=== PATIENT | female | born 1965 | race Caucasian/White ===

== ENCOUNTER → 2016-11-14 | Outpatient (CLI) | payer OTHER ==
[~2016-11-14] MED LIST: ALBU18HF INH; ATOR10TA PO; DIME1CAP PO; DULO60CA7 PO; ESOM40CA PO; ESTR1.25 PO; FENT1PAT77 TD; FLUT1DIS IH; GABA300C10 PO; MACI10TA PO; OXYB5TAB7 PO; OXYC15TA PO; OXYC20TA42 PO; SILD20TA PO; TIAG4TAB PO; TIOT18CA INH; WARF7.5T PO
== END | disposition home or self-care (01) ==
LOC: CFH 09:59
PROVIDERS: ATTEND Nurse Practitioner
DX: J98.11 Atelectasis (principal); I31.3 Pericardial effusion (noninflammatory); I51.7 Cardiomegaly
CPT/HCPCS: 71250

== ENCOUNTER → 2016-12-13 | Outpatient (CLI) | payer OTHER | END | disposition home or self-care (01) | LOC: CFH 10:09 | PROVIDERS: ATTEND Internal Medicine | DX: S52.124A Nondisplaced fracture of head of right radius, initial encounter for closed fracture (principal); M25.421 Effusion, right elbow; M25.531 Pain in right wrist; X58.XXXA Exposure to other specified factors, initial encounter; Y93.89 Activity, other specified; Y92.89 Other specified places as the place of occurrence of the external cause; Y99.8 Other external cause status ==

== ENCOUNTER → 2017-01-31 | Outpatient (CLI) | payer OTHER | END | disposition home or self-care (01) | LOC: CFH 15:19 | PROVIDERS: ATTEND Internal Medicine | DX: E04.2 Nontoxic multinodular goiter (principal) | CPT/HCPCS: 76536 ==

== ENCOUNTER → 2017-02-10 | Outpatient (CLI) | payer OTHER | END | disposition home or self-care (01) | LOC: RAD 14:01 | PROVIDERS: ATTEND Internal Medicine Gastroenterology | DX: K59.00 Constipation, unspecified (principal); Z90.49 Acquired absence of other specified parts of digestive tract; K92.1 Melena; R10.13 Epigastric pain; K64.8 Other hemorrhoids; I27.2 Other secondary pulmonary hypertension; G89.4 Chronic pain syndrome; Z79.01 Long term (current) use of anticoagulants; R13.14 Dysphagia, pharyngoesophageal phase; T40.2X5A Adverse effect of other opioids, initial encounter | CPT/HCPCS: 74000 ==

== ENCOUNTER → 2017-06-07 | Outpatient (CLI) | payer OTHER ==
[~2017-06-07] MED LIST changes: -TIAG4TAB PO; +TIAG4TAB18 PO
== END | disposition home or self-care (01) ==
LOC: WOUND 14:00
PROVIDERS: ATTEND Podiatrist Foot & Ankle Surgery
DX: E11.621 Type 2 diabetes mellitus with foot ulcer (principal); L97.521 Non-pressure chronic ulcer of other part of left foot limited to breakdown of skin; E11.618 Type 2 diabetes mellitus with other diabetic arthropathy; I27.29 Other secondary pulmonary hypertension; E11.610 Type 2 diabetes mellitus with diabetic neuropathic arthropathy; M19.072 Primary osteoarthritis, left ankle and foot; I50.9 Heart failure, unspecified; F17.200 Nicotine dependence, unspecified, uncomplicated; Z79.01 Long term (current) use of anticoagulants; Z86.2 Personal history of diseases of the blood and blood-forming organs and certain disorders involving the immune mechanism; Z90.710 Acquired absence of both cervix and uterus; Z90.49 Acquired absence of other specified parts of digestive tract
CPT/HCPCS: 97597

== ENCOUNTER → 2017-06-12 | Outpatient (CLI) | payer OTHER | END | disposition home or self-care (01) | LOC: CFH 12:13 | PROVIDERS: ATTEND Podiatrist Foot & Ankle Surgery | DX: M19.072 Primary osteoarthritis, left ankle and foot (principal); M14.672 Charcot's joint, left ankle and foot ==

== ENCOUNTER → 2017-06-14 | Outpatient (CLI) | payer OTHER | END | disposition home or self-care (01) | LOC: WOUND 10:00 | PROVIDERS: ATTEND Podiatrist Foot & Ankle Surgery | DX: E11.621 Type 2 diabetes mellitus with foot ulcer (principal); L97.511 Non-pressure chronic ulcer of other part of right foot limited to breakdown of skin; G35 Multiple sclerosis; I11.0 Hypertensive heart disease with heart failure; I50.9 Heart failure, unspecified; I27.29 Other secondary pulmonary hypertension; M19.072 Primary osteoarthritis, left ankle and foot; E11.610 Type 2 diabetes mellitus with diabetic neuropathic arthropathy; E11.618 Type 2 diabetes mellitus with other diabetic arthropathy; F17.210 Nicotine dependence, cigarettes, uncomplicated; Z79.01 Long term (current) use of anticoagulants; Z90.49 Acquired absence of other specified parts of digestive tract; Z90.710 Acquired absence of both cervix and uterus | CPT/HCPCS: G0463; WOU0463 ==

== ENCOUNTER → 2017-09-11 | Outpatient (CLI) | payer OTHER, MEDICAID ==
[~2017-09-11] MED LIST changes: +GADOBUTROL 10 MMOL/10 ML PFS ONE; +RIVA10TA PO
== END ==
LOC: RAD 11:22
PROVIDERS: ATTEND Psychiatry & Neurology Neurology
DX: G35 Multiple sclerosis (principal); R90.82 White matter disease, unspecified
CPT/HCPCS: 70553; A9585

== ENCOUNTER → 2017-10-22 | Outpatient (CLI) | payer OTHER, MEDICAID ==
[~2017-10-22] MED LIST changes: -GADOBUTROL 10 MMOL/10 ML PFS ONE
== END | disposition home or self-care (01) ==
LOC: CFH 10:40
PROVIDERS: ATTEND Family Medicine
DX: Z12.31 Encounter for screening mammogram for malignant neoplasm of breast (principal)
CPT/HCPCS: 77063; 77067

== ENCOUNTER 2017-12-25 15:48 | Inpatient (IN) | payer OTHER, MEDICAID ==
[2017-12-25] VITALS (7 sets, daily range): BP systolic 108–133; BP diastolic 40–61
[~2017-12-25] VITALS: Ht 177.8 cm; Wt 122.7 kg
[2017-12-25] MEDS ORDERED: SODIUM CHLORIDE FLUSH 10ML SYR IVF ONE (16:30)
[2017-12-25] MEDS ORDERED: INTE44DI SC (16:48)
[2017-12-25] MEDS ORDERED: LAMO200T3 PO (16:51)
[2017-12-25] MEDS ORDERED: TADA20TA33 PO (16:51)
[2017-12-25 16:53] LABS: MEAN CORPUSCULAR HEMOGLOBIN 25.1 pg (27.0-34.8); MEAN CORPUSCULAR HGB CONC 31.5 g/dL (32.4-35.8); MEAN CORPUSCULAR VOLUME 79.8 fL (80-100); MEAN PLATELET VOLUME 8.3 fL (7.4-10.4); PLATELET COUNT 183 x10^3/uL (130-400); RED BLOOD COUNT 2.21 x10^6/uL (3.82-5.3); RED CELL DISTRIBUTION WIDTH 20.4 % (9.6-15.2)
[2017-12-25] MEDS ORDERED: DICY20TA3 PO (16:53)
[2017-12-25 17:04] LABS: ALBUMIN 2.9 g/dL (3.4-5.0); ANION GAP 6 mmol/L (5-15); CALCIUM 8.4 mg/dL (8.5-10.1); CHLORIDE 106 mmol/L (98-107); CREATININE 0.81 mg/dL (0.55-1.02)
[2017-12-25 17:06] LABS: INTERNATIONAL NORMALIZED RATIO 1.06 (0.93-1.1); PROTHROMBIN TIME 10.9 Seconds (9.6-11.5)
[2017-12-25 17:37] LABS: MD YES
[2017-12-25 17:41] LABS: BASOS#(MANUAL) 0.14 x10^3/uL (0-0.1); BASOS% (MANUAL) 3 % (0-1); LYMPHS% (MANUAL) 27 % (22-44); MONOS#(MANUAL) 0.29 x10^3/uL (0.3-2.7); MONOS% (MANUAL) 6 % (2-9); SEG#(MANUAL) 3.07 x10^3/uL (1.8-6.8); SEGS% (MANUAL) 64 % (42-75)
[2017-12-25 17:43] LABS: HYPOCHROMIA 2+; MICROCYTOSIS 1+; OVALOCYTES 1+; POLYCHROMASIA 1+
[2017-12-25 17:44] LABS: ANISOCYTOSIS 2+
[2017-12-25 17:45] LABS: <PLATELET ESTIMATE> ADEQUATE; <PLT MORPHOLOGY> NORMAL PLT MORPH
[2017-12-25] MEDS ORDERED: IRON DEXTRAN IV PER PHARMACY IV PRN (18:30)
[2017-12-25] MEDS ORDERED: NICOTINE 21 MG/24 HR PATCH.TD24 TD SCH (18:30)
[2017-12-25] MEDS ORDERED: BISACODYL 10 MG SUPP PR PRN (18:30)
[2017-12-25] MEDS ORDERED: ONDANSETRON 2MG/ML, 2ML IVPush PRN (18:30)
[2017-12-25] MEDS ORDERED: ACETAMINOPHEN 325 MG TABLET PO PRN (18:30)
[2017-12-25] MEDS ORDERED: DICYCLOMINE 20 MG TABLET PO PRN (18:30)
[2017-12-25] MEDS ORDERED: POLYETHYLENE GLYCOL 17 GM PACKET PO PRN (18:30)
[2017-12-25] MEDS: SODIUM CHLORIDE FLUSH 10ML SYR IVF SCH (20:30)
[2017-12-25] MEDS ORDERED: GABAPENTIN 300 MG CAPSULE ONE (20:33)
[2017-12-25] MEDS ORDERED: NICOTINE 21 MG/24 HR PATCH.TD24 ONE (20:33)
[2017-12-25] MEDS ORDERED: LAMOTRIGINE 200 MG TABLET PO SCH (21:00)
[2017-12-25] MEDS ORDERED: ATORVASTATIN 10 MG TABLET PO SCH (21:00)
[2017-12-25] MEDS ORDERED: TIAGABINE 4 MG PO SCH (21:00)
[2017-12-25] MEDS: TIAGABINE 4 MG HOMEMEDPO SCH (21:01)
[2017-12-25] MEDS: GABAPENTIN 300 MG CAPSULE PO SCH (21:10)
[2017-12-25] MEDS: OXYBUTYNIN CHLORIDE 5 MG TABLET PO SCH (21:10)
[2017-12-25] MEDS: OxyconTIN ER 20 MG TAB.ER PO SCH (22:46)
[2017-12-26] VITALS (12 sets, daily range): BP systolic 112–146; BP diastolic 62–78
[2017-12-26] MEDS ORDERED: ALBUTEROL SULFATE 2.5 MG/3 ML NPPB PRN ×2 (01:30→16:30)
[2017-12-26] MEDS ORDERED: IRON SUCROSE COMPLEX 100MG/5ML IVPush SCH (01:33)
[2017-12-26] MEDS ORDERED: FENTANYL 100 MCG PATCH TD SCH (02:30)
[2017-12-26 04:34] LABS: MEAN CORPUSCULAR HEMOGLOBIN 26.3 pg (27.0-34.8); MEAN CORPUSCULAR HGB CONC 32.2 g/dL (32.4-35.8); MEAN CORPUSCULAR VOLUME 81.6 fL (80-100); MEAN PLATELET VOLUME 8.9 fL (7.4-10.4); PLATELET COUNT 170 x10^3/uL (130-400); RED CELL DISTRIBUTION WIDTH 19.4 % (9.6-15.2)
[2017-12-26 04:43] LABS: ALBUMIN 2.7 g/dL (3.4-5.0); ANION GAP 3 mmol/L (5-15); CALCIUM 7.9 mg/dL (8.5-10.1); CHLORIDE 109 mmol/L (98-107)
[2017-12-26 04:48] LABS: ALANINE AMINOTRANSFERASE 16 U/L (12-78); ALKALINE PHOSPHATASE 139 U/L (45-117); BILIRUBIN,TOTAL 0.5 mg/dL (0.2-1.0); CREATININE 0.61 mg/dL (0.55-1.02); TOTAL PROTEIN 5.6 g/dL (6.4-8.2)
[2017-12-26 05:35] LABS: MD YES
[2017-12-26 05:38] LABS: ANISOCYTOSIS 1+; EOS#(MANUAL) 0.04 x10^3/uL (0.0-0.4); EOS% (MANUAL) 1 % (1-7); HYPOCHROMIA 1+; LYMPH#(MANUAL) 1.22 x10^3/uL (1-3.4); LYMPHS% (MANUAL) 32 % (22-44); MICROCYTOSIS 1+; MONOS#(MANUAL) 0.15 x10^3/uL (0.3-2.7); MONOS% (MANUAL) 4 % (2-9); OVALOCYTES 1+; POLYCHROMASIA 1+; SEG#(MANUAL) 2.39 x10^3/uL (1.8-6.8); SEGS% (MANUAL) 63 % (42-75)
[2017-12-26 05:39] LABS: <PLATELET ESTIMATE> ADEQUATE; <PLT MORPHOLOGY> NORMAL PLT MORPH
[2017-12-26] MEDS ORDERED: IPRATROPIUM 0.5 MG/2.5 ML INHA NPPB SCH ×2 (07:00→19:00)
[2017-12-26] MEDS ORDERED: RIVAROXABAN 10 MG TABLET PO SCH (09:00)
[2017-12-26] MEDS ORDERED: TADALAFIL 20 MG PO SCH (09:00)
[2017-12-26] MEDS ORDERED: DULOXETINE 30 MG CAPSULE.DR PO SCH (09:00)
[2017-12-26] MEDS ORDERED: ESTROGENS CONJUGATED 0.625 MG TABLET PO SCH (09:00)
[2017-12-26] MEDS ORDERED: MACITENTAN 10 MG PO SCH (09:00)
[2017-12-26] MEDS: TIAGABINE 4 MG HOMEMEDPO SCH (09:00)
[2017-12-26] MEDS ORDERED: PANTOPROZOLE 40MG TABLET PO SCH (09:00)
[2017-12-26] MEDS ORDERED: SENNA/DOCUSATE TABLET PO SCH (09:00)
[2017-12-26] MEDS ORDERED: FLUTICASONE/VILANTEROL 100-25MCG/INH INH SCH (09:00)
[2017-12-26] MEDS ORDERED: FENTANYL 50 MCG PATCH ONE (09:59)
[2017-12-26] MEDS: OXYBUTYNIN CHLORIDE 5 MG TABLET PO SCH (10:01)
[2017-12-26] MEDS: OxyconTIN ER 20 MG TAB.ER PO SCH ×2 (10:01→17:10)
[2017-12-26] MEDS: GABAPENTIN 300 MG CAPSULE PO SCH ×2 (10:01→17:10)
[2017-12-26] MEDS: SODIUM CHLORIDE FLUSH 10ML SYR IVF SCH (10:06)
[2017-12-26] MEDS ORDERED: HYDROCORTISONE 25 MG SUPP PR PRN (14:00)
[2017-12-26] MEDS ORDERED: HYDR25SU21 PR (17:06)
[2017-12-26] MEDS ORDERED: DOCU-131 PO (17:06)
== END 2017-12-26 18:05 | disposition home or self-care (01) | DRG 393 ==
LOC: ED 18:13 → EDIP 18:14 → ED 18:22 → EDIP 21:25 → 4EST 12-26 00:32
PROVIDERS: ADMIT Hospitalist; ATTEND Hospitalist
PROC: 30233N1 Transfusion of Nonautologous Red Blood Cells into Peripheral Vein, Percutaneous Approach (ICD-10-PCS; principal; 2017-12-25)
DX: K64.8 Other hemorrhoids (principal); J96.20 Acute and chronic respiratory failure, unspecified whether with hypoxia or hypercapnia; D62 Acute posthemorrhagic anemia; E44.0 Moderate protein-calorie malnutrition; F11.20 Opioid dependence, uncomplicated; Z68.38 Body mass index [BMI] 38.0-38.9, adult; R73.9 Hyperglycemia, unspecified; I50.9 Heart failure, unspecified; I11.0 Hypertensive heart disease with heart failure; E78.5 Hyperlipidemia, unspecified; F17.210 Nicotine dependence, cigarettes, uncomplicated; F32.9 Major depressive disorder, single episode, unspecified; G35 Multiple sclerosis; G89.29 Other chronic pain; I27.20 Pulmonary hypertension, unspecified; J44.9 Chronic obstructive pulmonary disease, unspecified; K59.00 Constipation, unspecified; M14.679 Charcot's joint, unspecified ankle and foot; Z66 Do not resuscitate; Z80.0 Family history of malignant neoplasm of digestive organs; Z80.8 Family history of malignant neoplasm of other organs or systems; Z83.3 Family history of diabetes mellitus; Z90.710 Acquired absence of both cervix and uterus
CPT/HCPCS: 36415; 36430; 80048; 80053; 82040; 82728; 83036; 83540; 83550; 85014; 85018; 85025; 85610; 85730; 86850; 86900; 86923; 93005; 94640; 99291; J1756; J7644; P9016

== ENCOUNTER 2018-05-27 12:00 | Emergency (ER) | payer OTHER, MEDICAID ==
[~2018-05-27] VITALS: Ht 175.3 cm; Wt 118.0 kg
[2018-05-27] VITALS (12 sets, daily range): BP systolic 91–111; BP diastolic 32–45
[~2018-05-27 12:00] MED LIST changes: +DICY20TA3 PO; +DOCU-131 PO; +HYDR25SU21 PR; +INTE44DI SC; +LAMO200T3 PO; +TADA20TA33 PO
[2018-05-27 13:07] LABS: MEAN CORPUSCULAR HEMOGLOBIN 25.2 pg (27.0-34.8); MEAN CORPUSCULAR HGB CONC 30.7 g/dL (32.4-35.8); MEAN CORPUSCULAR VOLUME 81.9 fL (80-100); MEAN PLATELET VOLUME 7.8 fL (7.4-10.4); PLATELET COUNT 216 x10^3/uL (130-400); RED BLOOD COUNT 2.53 x10^6/uL (3.82-5.3); RED CELL DISTRIBUTION WIDTH 20.4 % (9.6-15.2)
[2018-05-27 13:11] LABS: HEMOGRAM NOTE RECHECKED
[2018-05-27 13:13] LABS: ALANINE AMINOTRANSFERASE 15 U/L (12-78); ANION GAP 4 mmol/L (5-15); CALCIUM 8.5 mg/dL (8.5-10.1); CHLORIDE 110 mmol/L (98-107); CREATININE 0.59 mg/dL (0.55-1.02); INTERNATIONAL NORMALIZED RATIO 1.1 (0.93-1.1); PROTHROMBIN TIME 11.6 Seconds (9.6-11.5)
[2018-05-27 13:17] LABS: ALKALINE PHOSPHATASE 114 U/L (45-117); BILIRUBIN,TOTAL 0.4 mg/dL (0.2-1.0); TOTAL PROTEIN 5.9 g/dL (6.4-8.2)
[2018-05-27 13:32] LABS: BASOPHILS % (AUTO) 0 % (0-1); EOSINOPHILS # (AUTO) 0.02 x10^3/uL (0-0.4); EOSINOPHILS % (AUTO) 1 % (1-7); LYMPHOCYTES # (AUTO) 0.51 x10^3/uL (1-3.4); LYMPHOCYTES % (AUTO) 11 % (22-44); MD MORPH REVIEW ONLY; MONOCYTES # (AUTO) 0.23 x10^3/uL (0.2-0.8); MONOCYTES % (AUTO) 5 % (2-9); NEUTROPHILS # (AUTO) 3.93 x10^3/uL (1.8-6.8); NEUTROPHILS % (AUTO) 84 % (42-75)
[2018-05-27 13:33] LABS: <PLATELET ESTIMATE> ADEQUATE; <PLT MORPHOLOGY> NORMAL PLT MORPH; ANISOCYTOSIS 1+; HYPOCHROMIA 2+; MICROCYTOSIS 1+; OVALOCYTES 1+; POLYCHROMASIA 1+
[2018-05-27] MEDS ORDERED: SODIUM CHLORIDE FLUSH 10ML SYR IVF ONE (14:00)
== END 2018-05-27 19:39 | disposition home or self-care (01) ==
LOC: ED 14:59
DX: D62 Acute posthemorrhagic anemia (principal); K62.5 Hemorrhage of anus and rectum; I11.0 Hypertensive heart disease with heart failure; I50.9 Heart failure, unspecified; F17.200 Nicotine dependence, unspecified, uncomplicated
CPT/HCPCS: 36415; 36430; 71045; 80053; 83880; 85025; 85610; 85730; 86850; 86900; 86923; 93005; 93970; 99291; P9016

== ENCOUNTER 2018-08-03 12:07 | Emergency (ER) | payer OTHER, MEDICAID ==
[~2018-08-03] VITALS: Ht 177.8 cm; Wt 108.0 kg
[~2018-08-03 12:07] MED LIST changes: -RIVA10TA PO; +RIVA10TA2 PO
--- NOTE | 2018-08-03 12:24 | NUR ---
BIB [facility]. Patient reported dizziness, made it to the chair, then had a syncopal episode while sitting chair. Lac to left eye brow. Taking coumadin. Denies CP, SOB and dizziness. Hx aflutter and scheduled for ablation in 2 weeks. Forgot to take propranolol this AM, but took it about 45 min prior to arrival in ED and states, "I feel better after taking my beta cee." Placed on NIBP, pulse ox and radiographer cardiac catheterization. Will continue to monitor.
[2018-08-03] MEDS ORDERED: SODIUM CHLORIDE FLUSH 10ML SYR IVF ONE (12:30)
[2018-08-03] MEDS ORDERED: DIPH,PERTUSS(ACELL),TET VAC/PF 0.5 ML IM-VACC ONE ×2 (12:30→13:15)
[2018-08-03] MEDS ORDERED: LIDOCAINE-MPF 1%, 2ML ONE (12:35)
--- NOTE | 2018-08-03 12:50 | NUR ---
LUNCH RN: EKG COMPELTED AT THIS TIME. SHOWN TO PT RESTING IN BED NADDonna.
[2018-08-03 12:51] VITALS: BP 113/53
[2018-08-03] MEDS ORDERED: LIDOCAINE-MPF 1%, 5ML INFIL ONE (13:00)
[2018-08-03 13:11] LABS: MEAN CORPUSCULAR HEMOGLOBIN 24.4 pg (27.0-34.8); MEAN CORPUSCULAR HGB CONC 31.5 g/dL (32.4-35.8); MEAN CORPUSCULAR VOLUME 77.7 fL (80-100); MEAN PLATELET VOLUME 8.1 fL (7.4-10.4); PLATELET COUNT 283 x10^3/uL (130-400); RED CELL DISTRIBUTION WIDTH 22.8 % (9.6-15.2)
[2018-08-03 13:16] LABS: ALBUMIN 3.1 g/dL (3.4-5.0); ANION GAP 5 mmol/L (5-15); CALCIUM 8.6 mg/dL (8.5-10.1); CHLORIDE 109 mmol/L (98-107); CREATININE 0.59 mg/dL (0.55-1.02); INTERNATIONAL NORMALIZED RATIO 1.51 (0.93-1.1)
[2018-08-03 13:27] LABS: MD YES
[2018-08-03 13:31] LABS: BAND#(MANUAL) 0.14 x10^3/uL; BANDS%(MANUAL) 2 % (0-7); EOS#(MANUAL) 0.14 x10^3/uL (0.0-0.4); EOS% (MANUAL) 2 % (1-7); LYMPH#(MANUAL) 1.19 x10^3/uL (1-3.4); LYMPHS% (MANUAL) 17 % (22-44); MONOS#(MANUAL) 0.28 x10^3/uL (0.3-2.7); MONOS% (MANUAL) 4 % (2-9); SEG#(MANUAL) 5.25 x10^3/uL (1.8-6.8); SEGS% (MANUAL) 75 % (42-75)
[2018-08-03 13:32] LABS: ANISOCYTOSIS 1+; MICROCYTOSIS 1+
[2018-08-03 13:33] LABS: HYPOCHROMIA 2+
[2018-08-03 13:34] LABS: OVALOCYTES 1+
[2018-08-03 13:35] LABS: <PLATELET ESTIMATE> ADEQUATE; <PLT MORPHOLOGY> NORMAL PLT MORPH; POLYCHROMASIA 1+
[2018-08-03 13:36] LABS: PROTHROMBIN TIME 15.8 Seconds (9.6-11.5)
== END 2018-08-03 14:29 | disposition home or self-care (01) ==
LOC: ED 12:38
DX: S01.112A Laceration without foreign body of left eyelid and periocular area, initial encounter (principal); R55 Syncope and collapse; D63.8 Anemia in other chronic diseases classified elsewhere; Z79.01 Long term (current) use of anticoagulants; I11.0 Hypertensive heart disease with heart failure; I50.9 Heart failure, unspecified; I48.91 Unspecified atrial fibrillation; F17.200 Nicotine dependence, unspecified, uncomplicated; X58.XXXA Exposure to other specified factors, initial encounter; Y93.89 Activity, other specified; Y92.89 Other specified places as the place of occurrence of the external cause; Y99.8 Other external cause status
CPT/HCPCS: 12051; 36415; 70450; 80048; 82040; 85025; 85610; 90471; 90715; 93005; 99284

== ENCOUNTER → 2018-11-22 | Outpatient (CLI) | payer MEDICARE, MEDICAID ==
[~2018-11-22] MED LIST changes: +LEVO100T5 PO; +PIND5TAB PO; +RIVA20TA PO; +TIOT4MIS5 INH
== END | disposition home or self-care (01) ==
LOC: LAB 15:07
PROVIDERS: ATTEND Family Medicine
DX: I51.7 Cardiomegaly (principal); E03.9 Hypothyroidism, unspecified; I48.4 Atypical atrial flutter; M19.072 Primary osteoarthritis, left ankle and foot; Z79.01 Long term (current) use of anticoagulants
CPT/HCPCS: 71046

== ENCOUNTER 2018-11-25 06:38 | Day surgery (SDC) | payer MEDICARE, MEDICAID ==
[~2018-11-25] VITALS: Ht 177.8 cm; Wt 108.6 kg
[~2018-11-25 06:38] MED LIST changes: -LEVO100T5 PO; -TIOT4MIS5 INH
[2018-11-25] MEDS ORDERED: SODIUM CHLORIDE 0.9% 1,000 ML IV SCH (07:05)
[2018-11-25] MEDS ORDERED: LIDOCAINE 1%, 20ML ONE (07:14)
[2018-11-25] MEDS ORDERED: TIOT4MIS5 INH (07:24)
[2018-11-25] MEDS ORDERED: SODIUM CHLORIDE 0.9% 1,000 ML IV ONE (07:30)
[2018-11-25] MEDS ORDERED: LEVO100T5 PO (07:38)
[2018-11-25] MEDS ORDERED: OXYC20TA42 PO (07:38)
[2018-11-25 07:39] VITALS: BP 107/76
[2018-11-25] MEDS ORDERED: FENTANYL PF 250 MCG/5ML ONE (07:43)
[2018-11-25] MEDS ORDERED: ALBUTEROL HFA 90 MCG/SPRAY ONE (08:00)
[2018-11-25] MEDS ORDERED: PHENYLEPHRINE 10 MG/ML ONE (08:00)
[2018-11-25] MEDS ORDERED: MIDAZOLAM 1 MG/ML, 2ML ONE (08:34)
[2018-11-25] MEDS ORDERED: DEXAMETHASONE 4 MG/ML, 1ML ONE (09:53)
[2018-11-25] MEDS ORDERED: SUCCINYLCHOLINE 20 MG/ML, 10ML ONE (09:53)
[2018-11-25] MEDS ORDERED: NEOSTIGMINE 1 MG/ML, 10ML ONE (09:53)
[2018-11-25] MEDS ORDERED: ONDANSETRON 2MG/ML, 2ML ONE (09:53)
[2018-11-25] MEDS ORDERED: CEFAZOLIN 1,000 MG ONE (09:53)
[2018-11-25] MEDS ORDERED: GLYCOPYRROLATE 0.2MG/1ML, 5ML ONE (09:53)
[2018-11-25] MEDS ORDERED: PROPOFOL 10 MG/ML, 20ML ONE (09:53)
[2018-11-25] MEDS ORDERED: ROCURONIUM 10MG/ML,5ML ONE (09:53)
[2018-11-25] MEDS ORDERED: ACETAMINOPHEN 325 MG TABLET PO PRN (10:00)
[2018-11-25] MEDS ORDERED: PROCHLORPERAZINE 5 MG/ML, 2ML IV PRN (10:30)
[2018-11-25] MEDS ORDERED: LABETALOL 5MG/ML, 20ML IV PRN (10:30)
[2018-11-25] MEDS ORDERED: hydrALAzine 20 MG/ML, 1ML IV PRN (10:30)
[2018-11-25] MEDS ORDERED: HALOPERIDOL 5 MG/ML IV PRN (10:30)
[2018-11-25] MEDS ORDERED: FENTANYL PF 100 MCG/2ML IV PRN (10:30)
[2018-11-25] MEDS ORDERED: MEPERIDINE/PF 25MG/0.5ML IVPush PRN (10:30)
[2018-11-25] MEDS ORDERED: METOPROLOL 1 MG/ML, 5ML IV PRN (10:30)
[2018-11-25] MEDS ORDERED: PROMETHAZINE 25 MG/ML, 1ML IV PRN (10:30)
[2018-11-25] MEDS ORDERED: HYDROmorphone 2 MG/ML, 1ML IVPush PRN (10:30)
== END 2018-11-25 14:51 | disposition home or self-care (01) ==
LOC: CACL 06:38
PROVIDERS: ATTEND Internal Medicine Cardiovascular Disease
DX: I48.92 Unspecified atrial flutter (principal); I10 Essential (primary) hypertension; J44.9 Chronic obstructive pulmonary disease, unspecified; I27.20 Pulmonary hypertension, unspecified; E03.9 Hypothyroidism, unspecified; E78.5 Hyperlipidemia, unspecified; G35 Multiple sclerosis; F32.9 Major depressive disorder, single episode, unspecified; G47.30 Sleep apnea, unspecified; E66.3 Overweight; Z68.34 Body mass index [BMI] 34.0-34.9, adult; F17.210 Nicotine dependence, cigarettes, uncomplicated; Z79.890 Hormone replacement therapy; Z79.01 Long term (current) use of anticoagulants; Z79.899 Other long term (current) drug therapy; Z88.8 Allergy status to other drugs, medicaments and biological substances; Z99.81 Dependence on supplemental oxygen
CPT/HCPCS: 93312; 93321; 93325; 93613; 93621; 93653; C1730; C1731; C1732; C1766; C1894; J0330; J0690; J1100; J2250; J2370; J2405; J2704; J2710; J3010

== ENCOUNTER 2018-12-23 12:17 | Emergency (ER) | payer MEDICARE, MEDICAID ==
[~2018-12-23] VITALS: Ht 177.8 cm; Wt 115.6 kg
[~2018-12-23 12:17] MED LIST changes: +LEVO100T5 PO; +TIOT4MIS5 INH
[2018-12-23 13:07] LABS: BASOPHILS # (AUTO) 0.03 x10^3/uL (0-0.1); BASOPHILS % (AUTO) 1 % (0-1); EOSINOPHILS % (AUTO) 2 % (1-7); LYMPHOCYTES # (AUTO) 0.67 x10^3/uL (1-3.4); LYMPHOCYTES % (AUTO) 15 % (22-44); MD NO; MEAN CORPUSCULAR HEMOGLOBIN 29.7 pg (27.0-34.8); MEAN CORPUSCULAR HGB CONC 31.6 g/dL (32.4-35.8); MEAN PLATELET VOLUME 6.6 fL (7.4-10.4); MONOCYTES # (AUTO) 0.34 x10^3/uL (0.2-0.8); MONOCYTES % (AUTO) 7 % (2-9); NEUTROPHILS # (AUTO) 3.41 x10^3/uL (1.8-6.8); NEUTROPHILS % (AUTO) 75 % (42-75); PLATELET COUNT 211 x10^3/uL (130-400); RED CELL DISTRIBUTION WIDTH 17.5 % (9.6-15.2)
--- NOTE | 2018-12-23 13:14 | NUR ---
DIZZINESS SINCE , RECEIVED BLOOD SAT PRIOR FOR SAME Source remains the same- heavy rectal bleeding thought to be d/t xarelto hr 70, 100/66 piv placed type and screen obtained by lab
[2018-12-23 13:18] LABS: ANION GAP 5 mmol/L (5-15); CALCIUM 8.5 mg/dL (8.5-10.1); CHLORIDE 105 mmol/L (98-107)
[2018-12-23 13:23] LABS: TROPONIN I 0.017 ng/mL (0.000-0.045)
--- NOTE | 2018-12-23 14:30 | NUR ---
PATIENT RESTINF COMFORTABLY ON GURNEY VITALS UNCHANGED ON BEEF [employer] CLARIFIED PLAN WITH PROVIDER: [facility]->ROAD TEST->D/C BLOOD BANK CALLED IN [facility]QU[facility] WHEREABOUTS-BLOOD MATCHED AND ALMOST READY PATIENT UPDATED ON ESTIMATED POC
[2018-12-23 15:14] VITALS: BP 99/31
--- NOTE | 2018-12-23 15:14 | NUR ---
BLOOD TRANSFUSION STARTED.
--- NOTE | 2018-12-23 15:22 | NUR ---
REPORT TO DEL MOODY BLOOD CONSENT OBTAINED BLOOD VERIFIED AND STARTED W/ [employer]
[2018-12-23 15:29] VITALS: BP 99/34
--- NOTE | 2018-12-23 15:46 | NUR ---
PT TOLERATING TRANSFUSION WELL, NO S/SX OF REACTION. PT SLEEPING AT THIS TIME.
--- NOTE | 2018-12-23 16:28 | NUR ---
VSS AT THIS TIME. PT REPORTS NO DISTRESS.
[2018-12-23 16:29] VITALS: BP 100/42
--- NOTE | 2018-12-23 17:25 | NUR ---
TASK RN - ROAD TEST WITH PT. PT AMBULATORY WITH STEADY GAIT. NADN. DENIES DIZZINESS OR SOB WITH AMBULATION.
--- NOTE | 2018-12-23 17:48 | NUR ---
Patient/Caregiver given discharge instructions and they have confirmed that they understand the instructions. Patient ambulatory with steady gait.
--- NOTE | 2018-12-23 17:49 | NUR ---
PT INFORMED OF THE RISKS AT THIS TIME OF GOING HOME AND NEEDING TO STAY. PT AT THIS TIME UNDERSTANDS THE RISKS BUT WOULD LIKE TO STILL GO HOME AT THIS TIME. PT INFORMED THAT SHE IS GOIGN AGAINST THE RECOMMENDED PLAN BUT PT STILL WANTING TO PROCEEDED.
[2018-12-23 17:51] VITALS: BP 103/49
--- NOTE | 2018-12-23 17:52 | NUR ---
Patient/Caregiver given discharge instructions and they have confirmed that they understand the instructions. Patient ambulatory with steady gait. Pt left with all personal belongings.
== END 2018-12-23 17:51 | disposition home or self-care (01) ==
LOC: ED 16:28
DX: R55 Syncope and collapse (principal); K92.1 Melena; D62 Acute posthemorrhagic anemia; I48.91 Unspecified atrial fibrillation; I11.0 Hypertensive heart disease with heart failure; I50.9 Heart failure, unspecified; Z90.710 Acquired absence of both cervix and uterus; I48.92 Unspecified atrial flutter
CPT/HCPCS: 36415; 36430; 80048; 82040; 84484; 85025; 86850; 86900; 86923; 93005; 99283; P9016

== ENCOUNTER 2019-08-04 12:52 | Outpatient (CLI) | payer MEDICARE, MEDICAID ==
[~2019-08-04 12:52] MED LIST changes: +OXYB5TAB10 PO; -OXYB5TAB7 PO
== END 2019-08-04 23:59 | disposition home or self-care (01) ==
LOC: WOUND 12:52
PROVIDERS: ATTEND Internal Medicine
DX: L89.893 Pressure ulcer of other site, stage 3 (principal); M14.672 Charcot's joint, left ankle and foot; I11.0 Hypertensive heart disease with heart failure; I50.9 Heart failure, unspecified; G62.9 Polyneuropathy, unspecified; I48.91 Unspecified atrial fibrillation; F17.210 Nicotine dependence, cigarettes, uncomplicated; Z90.710 Acquired absence of both cervix and uterus
CPT/HCPCS: 11042; G0463

== ENCOUNTER 2019-08-15 13:40 | Outpatient (CLI) | payer MEDICARE, MEDICAID | END 2019-08-15 23:59 | disposition home or self-care (01) | LOC: WOUND 13:40 | PROVIDERS: ATTEND Family Medicine | DX: L89.893 Pressure ulcer of other site, stage 3 (principal); L97.522 Non-pressure chronic ulcer of other part of left foot with fat layer exposed; L84 Corns and callosities; I11.0 Hypertensive heart disease with heart failure; I50.9 Heart failure, unspecified; M14.672 Charcot's joint, left ankle and foot; E04.1 Nontoxic single thyroid nodule; E78.5 Hyperlipidemia, unspecified; E03.9 Hypothyroidism, unspecified; E66.9 Obesity, unspecified; I27.20 Pulmonary hypertension, unspecified; I48.91 Unspecified atrial fibrillation; G62.9 Polyneuropathy, unspecified; J44.9 Chronic obstructive pulmonary disease, unspecified; G47.33 Obstructive sleep apnea (adult) (pediatric); G35 Multiple sclerosis; B59 Pneumocystosis; F17.210 Nicotine dependence, cigarettes, uncomplicated; Z68.34 Body mass index [BMI] 34.0-34.9, adult; Z90.710 Acquired absence of both cervix and uterus | CPT/HCPCS: 97597 ==

== ENCOUNTER 2019-08-27 14:01 | Outpatient (CLI) | payer MEDICARE, MEDICAID | END 2019-08-27 23:59 | disposition home or self-care (01) | LOC: WOUND 14:01 | PROVIDERS: ATTEND Internal Medicine | DX: L89.893 Pressure ulcer of other site, stage 3 (principal); L97.522 Non-pressure chronic ulcer of other part of left foot with fat layer exposed; L84 Corns and callosities; I11.0 Hypertensive heart disease with heart failure; I50.9 Heart failure, unspecified; M14.672 Charcot's joint, left ankle and foot; E04.1 Nontoxic single thyroid nodule; E78.5 Hyperlipidemia, unspecified; E03.9 Hypothyroidism, unspecified; E66.9 Obesity, unspecified; I27.20 Pulmonary hypertension, unspecified; I48.91 Unspecified atrial fibrillation; G62.9 Polyneuropathy, unspecified; J44.9 Chronic obstructive pulmonary disease, unspecified; G47.33 Obstructive sleep apnea (adult) (pediatric); G35 Multiple sclerosis; B59 Pneumocystosis; F17.210 Nicotine dependence, cigarettes, uncomplicated; Z68.34 Body mass index [BMI] 34.0-34.9, adult; Z90.710 Acquired absence of both cervix and uterus | CPT/HCPCS: 11042 ==

== ENCOUNTER 2019-09-11 09:41 | Outpatient (CLI) | payer MEDICARE, MEDICAID | END 2019-09-11 23:59 | disposition home or self-care (01) | LOC: WOUND 09:41 | PROVIDERS: ATTEND Podiatrist Foot & Ankle Surgery | DX: L89.893 Pressure ulcer of other site, stage 3 (principal); L97.522 Non-pressure chronic ulcer of other part of left foot with fat layer exposed; L84 Corns and callosities; I11.0 Hypertensive heart disease with heart failure; I50.9 Heart failure, unspecified; M14.672 Charcot's joint, left ankle and foot; E04.1 Nontoxic single thyroid nodule; E78.5 Hyperlipidemia, unspecified; E03.9 Hypothyroidism, unspecified; E66.9 Obesity, unspecified; I27.20 Pulmonary hypertension, unspecified; I48.91 Unspecified atrial fibrillation; G62.9 Polyneuropathy, unspecified; J44.9 Chronic obstructive pulmonary disease, unspecified; G47.33 Obstructive sleep apnea (adult) (pediatric); G35 Multiple sclerosis; B59 Pneumocystosis; F17.210 Nicotine dependence, cigarettes, uncomplicated; Z68.34 Body mass index [BMI] 34.0-34.9, adult; Z90.710 Acquired absence of both cervix and uterus | CPT/HCPCS: 11042 ==

== ENCOUNTER 2019-09-18 10:33 | Outpatient (CLI) | payer MEDICARE, MEDICAID | END 2019-09-18 23:59 | disposition home or self-care (01) | LOC: WOUND 10:33 | PROVIDERS: ATTEND Podiatrist Foot & Ankle Surgery | DX: L89.893 Pressure ulcer of other site, stage 3 (principal); L97.522 Non-pressure chronic ulcer of other part of left foot with fat layer exposed; L84 Corns and callosities; M14.672 Charcot's joint, left ankle and foot; I11.0 Hypertensive heart disease with heart failure; I50.9 Heart failure, unspecified; E78.5 Hyperlipidemia, unspecified; E03.9 Hypothyroidism, unspecified; E66.9 Obesity, unspecified; I27.20 Pulmonary hypertension, unspecified; I48.91 Unspecified atrial fibrillation; J44.9 Chronic obstructive pulmonary disease, unspecified; G35 Multiple sclerosis; G47.33 Obstructive sleep apnea (adult) (pediatric); G62.9 Polyneuropathy, unspecified; R73.9 Hyperglycemia, unspecified; F17.210 Nicotine dependence, cigarettes, uncomplicated; Z90.710 Acquired absence of both cervix and uterus; Z90.49 Acquired absence of other specified parts of digestive tract; Z68.34 Body mass index [BMI] 34.0-34.9, adult | CPT/HCPCS: 11042; 87070; 87077; 87147; 87186; 87205 ==

== ENCOUNTER 2019-09-25 10:51 | Outpatient (CLI) | payer MEDICARE, MEDICAID | END 2019-09-25 23:59 | disposition home or self-care (01) | LOC: WOUND 10:51 | PROVIDERS: ATTEND Podiatrist Foot & Ankle Surgery | DX: L89.893 Pressure ulcer of other site, stage 3 (principal); L97.522 Non-pressure chronic ulcer of other part of left foot with fat layer exposed; M14.672 Charcot's joint, left ankle and foot; M86.172 Other acute osteomyelitis, left ankle and foot; E78.5 Hyperlipidemia, unspecified; E03.9 Hypothyroidism, unspecified; J44.9 Chronic obstructive pulmonary disease, unspecified; G47.33 Obstructive sleep apnea (adult) (pediatric); G35 Multiple sclerosis; I11.0 Hypertensive heart disease with heart failure; I50.9 Heart failure, unspecified; G62.9 Polyneuropathy, unspecified; I48.91 Unspecified atrial fibrillation; E66.9 Obesity, unspecified; F17.210 Nicotine dependence, cigarettes, uncomplicated; Z68.34 Body mass index [BMI] 34.0-34.9, adult; Z90.710 Acquired absence of both cervix and uterus; Z90.49 Acquired absence of other specified parts of digestive tract | CPT/HCPCS: 11042 ==

== ENCOUNTER → 2019-10-02 | Outpatient (CLI) | payer MEDICARE, MEDICAID | END | disposition home or self-care (01) | LOC: WOUND 11:04 | PROVIDERS: ATTEND Podiatrist Foot & Ankle Surgery | DX: L89.893 Pressure ulcer of other site, stage 3 (principal); M14.672 Charcot's joint, left ankle and foot; M86.172 Other acute osteomyelitis, left ankle and foot; E78.5 Hyperlipidemia, unspecified; E03.9 Hypothyroidism, unspecified; J44.9 Chronic obstructive pulmonary disease, unspecified; G47.33 Obstructive sleep apnea (adult) (pediatric); G35 Multiple sclerosis; I11.0 Hypertensive heart disease with heart failure; I50.9 Heart failure, unspecified; G62.9 Polyneuropathy, unspecified; I48.91 Unspecified atrial fibrillation; E66.9 Obesity, unspecified; L84 Corns and callosities; F17.210 Nicotine dependence, cigarettes, uncomplicated; Z68.34 Body mass index [BMI] 34.0-34.9, adult; Z90.710 Acquired absence of both cervix and uterus; Z90.49 Acquired absence of other specified parts of digestive tract | CPT/HCPCS: 11042 ==

== ENCOUNTER → 2019-10-09 | Outpatient (CLI) | payer MEDICARE, MEDICAID | END | disposition home or self-care (01) | LOC: WOUND 11:04 | PROVIDERS: ATTEND Podiatrist Foot & Ankle Surgery | DX: L89.893 Pressure ulcer of other site, stage 3 (principal); L97.522 Non-pressure chronic ulcer of other part of left foot with fat layer exposed; L84 Corns and callosities; I11.0 Hypertensive heart disease with heart failure; I50.9 Heart failure, unspecified; I27.20 Pulmonary hypertension, unspecified; I48.91 Unspecified atrial fibrillation; E78.5 Hyperlipidemia, unspecified; E03.9 Hypothyroidism, unspecified; E04.1 Nontoxic single thyroid nodule; E66.9 Obesity, unspecified; M14.672 Charcot's joint, left ankle and foot; M86.172 Other acute osteomyelitis, left ankle and foot; G35 Multiple sclerosis; G47.33 Obstructive sleep apnea (adult) (pediatric); G62.9 Polyneuropathy, unspecified; J44.9 Chronic obstructive pulmonary disease, unspecified; F17.210 Nicotine dependence, cigarettes, uncomplicated; Z90.49 Acquired absence of other specified parts of digestive tract; Z90.710 Acquired absence of both cervix and uterus | CPT/HCPCS: 11042 ==

== ENCOUNTER 2019-11-13 11:06 | Outpatient (CLI) | payer MEDICARE, MEDICAID ==
[~2019-11-13 11:06] MED LIST changes: -OXYC15TA PO; +OXYC15TA3 PO
== END 2019-11-13 23:59 | disposition home or self-care (01) ==
LOC: WOUND 11:06
PROVIDERS: ATTEND Podiatrist Foot & Ankle Surgery
DX: E11.621 Type 2 diabetes mellitus with foot ulcer (principal); L89.893 Pressure ulcer of other site, stage 3; L97.522 Non-pressure chronic ulcer of other part of left foot with fat layer exposed; L84 Corns and callosities; I11.0 Hypertensive heart disease with heart failure; I50.9 Heart failure, unspecified; I27.20 Pulmonary hypertension, unspecified; I48.91 Unspecified atrial fibrillation; E78.5 Hyperlipidemia, unspecified; E03.9 Hypothyroidism, unspecified; E04.1 Nontoxic single thyroid nodule; E11.610 Type 2 diabetes mellitus with diabetic neuropathic arthropathy; E11.69 Type 2 diabetes mellitus with other specified complication; M86.172 Other acute osteomyelitis, left ankle and foot; E66.9 Obesity, unspecified; G35 Multiple sclerosis; G47.33 Obstructive sleep apnea (adult) (pediatric); E11.42 Type 2 diabetes mellitus with diabetic polyneuropathy; J44.9 Chronic obstructive pulmonary disease, unspecified; F32.9 Major depressive disorder, single episode, unspecified; K21.9 Gastro-esophageal reflux disease without esophagitis; M85.88 Other specified disorders of bone density and structure, other site; F11.20 Opioid dependence, uncomplicated; F17.210 Nicotine dependence, cigarettes, uncomplicated; Z90.49 Acquired absence of other specified parts of digestive tract; Z90.710 Acquired absence of both cervix and uterus; Z68.34 Body mass index [BMI] 34.0-34.9, adult; Z86.14 Personal history of Methicillin resistant Staphylococcus aureus infection; Z91.09 Other allergy status, other than to drugs and biological substances; Z79.899 Other long term (current) drug therapy
CPT/HCPCS: 11042; 11045

== ENCOUNTER → 2019-11-20 | Outpatient (CLI) | payer MEDICARE, MEDICAID ==
[~2019-11-20] MED LIST changes: +OXYC15TA PO; -OXYC15TA3 PO
== END | disposition home or self-care (01) ==
LOC: WOUND 10:33
PROVIDERS: ATTEND Podiatrist Foot & Ankle Surgery
DX: L89.893 Pressure ulcer of other site, stage 3 (principal); L97.522 Non-pressure chronic ulcer of other part of left foot with fat layer exposed; L84 Corns and callosities; I11.0 Hypertensive heart disease with heart failure; I50.9 Heart failure, unspecified; I27.20 Pulmonary hypertension, unspecified; I48.91 Unspecified atrial fibrillation; E78.5 Hyperlipidemia, unspecified; E03.9 Hypothyroidism, unspecified; E04.1 Nontoxic single thyroid nodule; E66.9 Obesity, unspecified; M14.672 Charcot's joint, left ankle and foot; M86.172 Other acute osteomyelitis, left ankle and foot; G35 Multiple sclerosis; G47.33 Obstructive sleep apnea (adult) (pediatric); G62.9 Polyneuropathy, unspecified; J44.9 Chronic obstructive pulmonary disease, unspecified; F17.210 Nicotine dependence, cigarettes, uncomplicated; Z90.49 Acquired absence of other specified parts of digestive tract; Z90.710 Acquired absence of both cervix and uterus
CPT/HCPCS: 11042; 11045; 87070; 87075; 87077; 87186; 87205

== ENCOUNTER → 2019-11-21 | Outpatient (CLI) | payer MEDICARE, MEDICAID | END | disposition home or self-care (01) | LOC: CFH 11:49 | PROVIDERS: ATTEND Podiatrist Foot & Ankle Surgery | DX: M77.32 Calcaneal spur, left foot (principal); L97.522 Non-pressure chronic ulcer of other part of left foot with fat layer exposed; M86.172 Other acute osteomyelitis, left ankle and foot; M85.88 Other specified disorders of bone density and structure, other site ==

== ENCOUNTER 2019-11-27 11:19 | Inpatient (IN) | payer MEDICARE, MEDICAID ==
[~2019-11-27] VITALS: Ht 172.7 cm; Wt 110.9 kg
[2019-11-27] VITALS (11 sets, daily range): BP systolic 93–127; BP diastolic 49–67
[~2019-11-27 11:19] MED LIST changes: -SULF1TAB24 PO; -TADA20TA43 PO
--- NOTE | 2019-11-27 11:57 | NUR ---
TAX TECHNICIAN: PT TO ROOM VIA WHEELCHAIR FROM LOBBY AT THIS TIME.
--- NOTE | 2019-11-27 12:04 | NUR ---
PT C/O CHRONIC RECTAL BLEEDING DURING BM. PT HAD 6 UNITS BLOOD TRANSFUSION NOVEMBER 05 AT [facility]. PT CONNECTED TO MONITORING. CALL LIGHT IN REACH. AT BEDSIDE FOR ASSESSMENT.
[2019-11-27] MEDS ORDERED: SODIUM CHLORIDE FLUSH 10ML SYR IVF ONE (12:30)
[2019-11-27] MEDS ORDERED: VANCOMYCIN 2,100 MG in SODIUM CHLORIDE 0.9% 500 ML IV ONE (12:30)
[2019-11-27] MEDS ORDERED: VANCOMYCIN PER PHARMACY MC ONE (12:30)
--- NOTE | 2019-11-27 12:41 | NUR ---
MD DOES NOT WANT TO COLLECT BLOOD CULTURES. OK TO START IV ABX.
[2019-11-27 13:00] LABS: INTERNATIONAL NORMALIZED RATIO 1.06 (0.93-1.1); PROTHROMBIN TIME 11.2 Seconds (9.6-11.5)
[2019-11-27 13:02] LABS: ALANINE AMINOTRANSFERASE 11 U/L (12-78); ALBUMIN 2.8 g/dL (3.4-5.0); ANION GAP 4 mmol/L (5-15); C-REACTIVE PROTEIN, QUANT 0.06 mg/dL (0.02-0.49); CALCIUM 8.5 mg/dL (8.5-10.1); CHLORIDE 107 mmol/L (98-107)
[2019-11-27 13:05] LABS: MEAN CORPUSCULAR VOLUME 90.2 fL (80-100); MEAN PLATELET VOLUME 7.2 fL (7.4-10.4); PLATELET COUNT 252 x10^3/uL (130-400); RED BLOOD COUNT 2.23 x10^6/uL (3.82-5.3); RED CELL DISTRIBUTION WIDTH 24.8 % (9.6-15.2)
[2019-11-27 13:05] LABS: ALKALINE PHOSPHATASE 154 U/L (45-117); BILIRUBIN,TOTAL 0.4 mg/dL (0.2-1.0); TOTAL PROTEIN 6.8 g/dL (6.4-8.2)
--- NOTE | 2019-11-27 13:16 | NUR ---
UA AT BEDSIDE.
[2019-11-27 13:17] LABS: HCT (SEDRATE) 20.1 % (34.6-47.8)
[2019-11-27 13:18] LABS: MD YES
[2019-11-27 13:22] LABS: ANISOCYTOSIS 1+; BAND#(MANUAL) 0.08 x10^3/uL; BANDS%(MANUAL) 2 % (0-7); EOS#(MANUAL) 0.08 x10^3/uL (0.0-0.4); EOS% (MANUAL) 2 % (1-7); HYPOCHROMIA 1+; LYMPHS% (MANUAL) 25 % (22-44); MICROCYTOSIS 1+; MONOS#(MANUAL) 0.24 x10^3/uL (0.3-2.7); MONOS% (MANUAL) 6 % (2-9); OVALOCYTES 1+; POLYCHROMASIA 1+; SEGS% (MANUAL) 65 % (42-75); TEAR DROPS 1+
[2019-11-27 13:23] LABS: <PLATELET ESTIMATE> ADEQUATE; <PLT MORPHOLOGY> NORMAL PLT MORPH
--- NOTE | 2019-11-27 14:37 | NUR ---
BLOOD RECEIVED AND VARIFIED WITH ANOTHER RN. VSS AFTER FIRST 15 MINUTES. NO S/SX OF REACTION. PT RESTING COMFORTABLY ON GURNEY. WERNER.
[2019-11-27] MEDS ORDERED: GOLYTELY 4,000ML ORAL.SOL PO ONE (15:00)
--- NOTE | 2019-11-27 15:01 | NUR ---
REPORT GIVEN TO CLAIRE MOODY.
[2019-11-27] MEDS ORDERED: DICYCLOMINE 20 MG TABLET PO PRN (16:30)
[2019-11-27] MEDS ORDERED: DOCUSATE 100 MG CAPSULE PO PRN (17:00)
[2019-11-27] MEDS ORDERED: ONDANSETRON 2MG/ML, 2ML IVPush PRN (17:00)
[2019-11-27] MEDS ORDERED: BISACODYL 10 MG SUPP PR PRN (17:00)
[2019-11-27] MEDS ORDERED: ACETAMINOPHEN 325 MG TABLET PO PRN (17:00)
[2019-11-27] MEDS ORDERED: hydrALAzine 20 MG/ML, 1ML IVPush PRN (17:00)
[2019-11-27] MEDS ORDERED: morphine SULFATE 10 MG/ML, 1ML IVPush PRN (17:00)
[2019-11-27] MEDS ORDERED: LABETALOL 5MG/ML, 20ML IVPush PRN (17:00)
[2019-11-27] MEDS ORDERED: ZOLPIDEM 5MG TABLET PO PRN (17:00)
[2019-11-27] MEDS ORDERED: ALBUTEROL SULFATE 2.5 MG/3 ML NPPB PRN (17:30)
[2019-11-27 17:41] LABS: FREE T4 (FREE THYROXINE) 0.86 ng/dL (0.76-1.46)
[2019-11-27] MEDS: NS + 20MEQ KCL 1,000 ML IV SCH (18:24)
[2019-11-27] MEDS ORDERED: GOLYTELY 4,000ML ORAL.SOL ONE (20:18)
[2019-11-27] MEDS ORDERED: BUDESONIDE 0.5 MG/2 ML INHA NEB SCH (21:00)
[2019-11-27] MEDS: PINDOLOL 5 MG TABLET PO SCH (21:00)
[2019-11-27] MEDS ORDERED: ALBUTEROL/IPRATROPIUM 2.5MG/0.5MG, 3 ML NPPB SCH (21:00)
[2019-11-27] MEDS: LAMOTRIGINE 200 MG TABLET PO SCH (21:10)
[2019-11-27] MEDS: FENTANYL 100 MCG PATCH TD SCH (21:12)
[2019-11-27] MEDS: OXYBUTYNIN CHLORIDE 5 MG TABLET PO SCH (21:13)
[2019-11-27] MEDS: GABAPENTIN 300 MG CAPSULE PO SCH (21:13)
[2019-11-28 00:28] VITALS: BP 125/62
[2019-11-28 01:00] VITALS: BP 103/52
[2019-11-28] MEDS: NS + 20MEQ KCL 1,000 ML IV SCH ×2 (06:30→23:14)
[2019-11-28] MEDS: BUDESONIDE 0.5 MG/2 ML INHA NEB SCH ×2 (07:58→21:33)
[2019-11-28] MEDS: ALBUTEROL/IPRATROPIUM 2.5MG/0.5MG, 3 ML NPPB SCH ×3 (07:58→21:34)
[2019-11-28 08:00] VITALS: BP 123/69
[2019-11-28] MEDS: MACITENTAN 10 MG HOMEMEDPO SCH (08:03)
[2019-11-28] MEDS: PINDOLOL 5 MG TABLET PO SCH ×2 (08:03→20:44)
[2019-11-28] MEDS: TADALAFIL 20 MG HOMEMEDPO SCH (08:03)
[2019-11-28] MEDS: PANTOPRAZOLE 40 MG IV IVPush SCH (08:13)
[2019-11-28] MEDS: GABAPENTIN 300 MG CAPSULE PO SCH ×3 (08:14→20:57)
[2019-11-28] MEDS: DULOXETINE 30 MG CAPSULE.DR PO SCH (08:14)
[2019-11-28] MEDS: OXYBUTYNIN CHLORIDE 5 MG TABLET PO SCH ×2 (08:14→20:57)
[2019-11-28] MEDS ORDERED: OXYcodone IR 5MG TABLET ONE ×2 (08:18→20:54)
[2019-11-28] MEDS: OXYcodone IR 30 MG TABLET PO PRN ×2 (08:18→20:57)
[2019-11-28] MEDS: ESTROGENS CONJUGATED 0.625 MG TABLET PO SCH (08:20)
[2019-11-28] MEDS: DAKIN'S SOLUTION 1/4 STRENGTH 1,000 ML IRRIG SOLN EXT SCH ×2 (09:00→21:00)
[2019-11-28] MEDS ORDERED: TIOTROPIUM BROMIDE 2.5 MCG INH SCH (09:00)
[2019-11-28] MEDS ORDERED: TEMPLATE NON-FORMULARY MED. (Esomeprazole Magnesium** (Nexium**) 40 MG) PO SCH (09:00)
[2019-11-28] MEDS ORDERED: CHLORHEXIDINE 15 ML UDC ONE (13:04)
[2019-11-28] MEDS ORDERED: PROPOFOL 50 ML ONE ×2 (13:19→14:39)
[2019-11-28] MEDS ORDERED: FENTANYL PF 250 MCG/5ML ONE (13:20)
[2019-11-28] MEDS ORDERED: ROCURONIUM 10 MG/ML,10ML ONE (13:23)
[2019-11-28] MEDS ORDERED: CHLORHEXIDINE 15 ML UDC MM ONE (13:30)
[2019-11-28] MEDS ORDERED: ONDANSETRON 2MG/ML, 2ML ONE (13:57)
[2019-11-28] MEDS ORDERED: SUCCINYLCHOLINE 20 MG/ML, 10ML ONE (13:57)
[2019-11-28] MEDS ORDERED: ONDANSETRON 2MG/ML, 2ML IVPush PRN (14:00)
[2019-11-28] MEDS ORDERED: PROMETHAZINE 25 MG/ML, 1ML IVPush PRN (14:00)
[2019-11-28] MEDS ORDERED: FENTANYL PF 100 MCG/2ML IV PRN (14:00)
[2019-11-28] MEDS ORDERED: EPHEDRINE 50 MG/ML, 1ML IM PRN (14:00)
[2019-11-28] MEDS ORDERED: DIPHENHYDRAMINE 50 MG/ML, 1ML IVPush PRN (14:00)
[2019-11-28] MEDS ORDERED: OXYcodone 5 MG/5 ML ORAL.SOL UDC PO PRN (14:00)
[2019-11-28] MEDS ORDERED: EPHEDRINE 50 MG/ML, 1ML IVPush PRN (14:00)
[2019-11-28] MEDS ORDERED: HYDROmorphone 1 MG/ML, 1ML INJ IVPush PRN (14:00)
[2019-11-28] MEDS ORDERED: VANCOMYCIN PER PHARMACY MC PRN (16:00)
[2019-11-28] MEDS ORDERED: PHARMACOKINETIC MONITORING MC PRN (16:00)
[2019-11-28] MEDS ORDERED: PHARMACOKINETIC CONSULTATION MC ONE (16:00)
[2019-11-28] MEDS: metroNIDAZOLE 500 MG TABLET PO SCH ×2 (16:07→23:14)
[2019-11-28 16:09] VITALS: BP 121/51
[2019-11-28] MEDS ORDERED: VANCOMYCIN 2,000 MG in SODIUM CHLORIDE 0.9% 500 ML IV ONE (16:30)
[2019-11-28 19:06] VITALS: BP 114/69
[2019-11-28] MEDS: LAMOTRIGINE 200 MG TABLET PO SCH (20:57)
[2019-11-28] MEDS ORDERED: TADA20TA43 PO (22:50)
[2019-11-29] VITALS (17 sets, daily range): BP systolic 98–151; BP diastolic 42–74
[2019-11-29] MEDS: ALBUTEROL/IPRATROPIUM 2.5MG/0.5MG, 3 ML NPPB SCH ×4 (03:00→21:40)
[2019-11-29 04:34] LABS: BASOPHILS # (AUTO) 0.04 x10^3/uL (0-0.1); BASOPHILS % (AUTO) 1 % (0-1); EOSINOPHILS % (AUTO) 3 % (1-7); LYMPHOCYTES # (AUTO) 1.01 x10^3/uL (1-3.4); LYMPHOCYTES % (AUTO) 26 % (22-44); MD NO; MEAN CORPUSCULAR HEMOGLOBIN 28.3 pg (27.0-34.8); MEAN CORPUSCULAR HGB CONC 31.1 g/dL (32.4-35.8); MEAN CORPUSCULAR VOLUME 91.2 fL (80-100); MEAN PLATELET VOLUME 7.5 fL (7.4-10.4); MONOCYTES # (AUTO) 0.34 x10^3/uL (0.2-0.8); MONOCYTES % (AUTO) 9 % (2-9); NEUTROPHILS # (AUTO) 2.34 x10^3/uL (1.8-6.8); NEUTROPHILS % (AUTO) 61 % (42-75); PLATELET COUNT 240 x10^3/uL (130-400); RED BLOOD COUNT 2.55 x10^6/uL (3.82-5.3); RED CELL DISTRIBUTION WIDTH 20.7 % (9.6-15.2)
[2019-11-29 04:35] LABS: ANION GAP 5 mmol/L (5-15); CHLORIDE 112 mmol/L (98-107); CREATININE 0.68 mg/dL (0.55-1.02)
[2019-11-29] MEDS ORDERED: OXYcodone IR 5MG TABLET ONE ×2 (05:39→22:25)
[2019-11-29] MEDS: PANTOPRAZOLE 40 MG IV IVPush SCH (05:44)
[2019-11-29] MEDS: OXYcodone IR 30 MG TABLET PO PRN ×2 (05:45→22:30)
[2019-11-29] MEDS: BUDESONIDE 0.5 MG/2 ML INHA NEB SCH ×2 (06:28→21:40)
[2019-11-29] MEDS: metroNIDAZOLE 500 MG TABLET PO SCH ×2 (08:51→17:34)
[2019-11-29] MEDS: GABAPENTIN 300 MG CAPSULE PO SCH ×3 (08:51→20:57)
[2019-11-29] MEDS: DULOXETINE 30 MG CAPSULE.DR PO SCH (08:52)
[2019-11-29] MEDS: PINDOLOL 5 MG TABLET PO SCH ×3 (08:52→20:59)
[2019-11-29] MEDS: OXYBUTYNIN CHLORIDE 5 MG TABLET PO SCH ×2 (08:53→20:57)
[2019-11-29] MEDS: MACITENTAN 10 MG HOMEMEDPO SCH (08:54)
[2019-11-29] MEDS: TADALAFIL 20 MG HOMEMEDPO SCH (08:56)
[2019-11-29] MEDS: DAKIN'S SOLUTION 1/4 STRENGTH 1,000 ML IRRIG SOLN EXT SCH ×2 (09:00→23:30)
[2019-11-29] MEDS ORDERED: BUPIVACAINE LIPOSOME/PF 10ML INFIL ONE (09:30)
[2019-11-29] MEDS ORDERED: PROPOFOL 50 ML ONE (09:48)
[2019-11-29] MEDS ORDERED: MIDAZOLAM 1 MG/ML, 2ML ONE (09:49)
[2019-11-29] MEDS ORDERED: FENTANYL PF 250 MCG/5ML ONE (09:49)
[2019-11-29] MEDS: NS + 20MEQ KCL 1,000 ML IV SCH ×2 (10:00→20:57)
[2019-11-29] MEDS ORDERED: BUPIVACAINE LIPOSOME/PF 20ML INFIL ONE (10:24)
[2019-11-29] MEDS ORDERED: MIDAZOLAM 1 MG/ML, 2ML IV PRN (11:00)
[2019-11-29] MEDS ORDERED: OXYcodone 5 MG/5 ML ORAL.SOL UDC PO PRN (11:00)
[2019-11-29] MEDS ORDERED: HYDROmorphone 1 MG/ML, 1ML INJ IVPush PRN (11:00)
[2019-11-29] MEDS ORDERED: PROMETHAZINE 25 MG/ML, 1ML IVPush PRN (11:00)
[2019-11-29] MEDS ORDERED: DIPHENHYDRAMINE 50 MG/ML, 1ML IVPush PRN (11:00)
[2019-11-29] MEDS ORDERED: EPHEDRINE 50 MG/ML, 1ML IM PRN (11:00)
[2019-11-29] MEDS ORDERED: ONDANSETRON 2MG/ML, 2ML IVPush PRN (11:00)
[2019-11-29] MEDS ORDERED: MEPERIDINE/PF 25MG/0.5ML IVPush PRN (11:00)
[2019-11-29] MEDS ORDERED: OXYcodone 5 MG/5 ML ORAL.SOL UDC ONE (11:20)
[2019-11-29] MEDS ORDERED: FENTANYL PF 100 MCG/2ML ONE (11:20)
[2019-11-29] MEDS: FENTANYL PF 100 MCG/2ML IV PRN ×3 (11:21→11:35)
[2019-11-29] MEDS ORDERED: ALBUTEROL SULFATE 2.5 MG/3 ML ONE (12:11)
[2019-11-29] MEDS: ESTROGENS CONJUGATED 0.625 MG TABLET PO SCH (14:07)
[2019-11-29] MEDS: VANCOMYCIN 2,000 MG in SODIUM CHLORIDE 0.9% 500 ML IV SCH (17:34)
[2019-11-29] MEDS ORDERED: FENTANYL REMOVE PATCH NOTE XX SCH (19:29)
[2019-11-29] MEDS: LAMOTRIGINE 200 MG TABLET PO SCH (20:57)
[2019-11-29] MEDS: FENTANYL 100 MCG PATCH TD SCH (20:58)
[2019-11-30 00:31] VITALS: BP 158/70
[2019-11-30] MEDS: metroNIDAZOLE 500 MG TABLET PO SCH ×2 (01:47→09:47)
[2019-11-30] MEDS: ALBUTEROL/IPRATROPIUM 2.5MG/0.5MG, 3 ML NPPB SCH ×2 (03:00→07:15)
[2019-11-30 05:10] LABS: BASOPHILS # (AUTO) 0.03 x10^3/uL (0-0.1); BASOPHILS % (AUTO) 1 % (0-1); EOSINOPHILS % (AUTO) 2 % (1-7); LYMPHOCYTES # (AUTO) 0.76 x10^3/uL (1-3.4); LYMPHOCYTES % (AUTO) 13 % (22-44); MD NO; MEAN CORPUSCULAR HEMOGLOBIN 28.4 pg (27.0-34.8); MEAN CORPUSCULAR VOLUME 91.7 fL (80-100); MEAN PLATELET VOLUME 7.5 fL (7.4-10.4); MONOCYTES # (AUTO) 0.37 x10^3/uL (0.2-0.8); MONOCYTES % (AUTO) 6 % (2-9); NEUTROPHILS # (AUTO) 4.54 x10^3/uL (1.8-6.8); NEUTROPHILS % (AUTO) 78 % (42-75); PLATELET COUNT 242 x10^3/uL (130-400); RED BLOOD COUNT 2.78 x10^6/uL (3.82-5.3); RED CELL DISTRIBUTION WIDTH 20.3 % (9.6-15.2)
[2019-11-30 05:17] LABS: ANION GAP 3 mmol/L (5-15); CALCIUM 8.3 mg/dL (8.5-10.1); CHLORIDE 110 mmol/L (98-107); CREATININE 0.71 mg/dL (0.55-1.02)
[2019-11-30 06:18] VITALS: BP 146/74
[2019-11-30] MEDS: BUDESONIDE 0.5 MG/2 ML INHA NEB SCH (07:15)
[2019-11-30] MEDS ORDERED: TADALAFIL 20 MG HOMEMEDPO SCH (09:00)
[2019-11-30] MEDS: PINDOLOL 5 MG TABLET PO SCH (09:00)
[2019-11-30] MEDS: DAKIN'S SOLUTION 1/4 STRENGTH 1,000 ML IRRIG SOLN EXT SCH (09:00)
[2019-11-30] MEDS: MACITENTAN 10 MG HOMEMEDPO SCH (09:00)
[2019-11-30] MEDS: PANTOPRAZOLE 40 MG IV IVPush SCH (09:45)
[2019-11-30] MEDS: ESTROGENS CONJUGATED 0.625 MG TABLET PO SCH (09:46)
[2019-11-30] MEDS: OXYBUTYNIN CHLORIDE 5 MG TABLET PO SCH (09:46)
[2019-11-30] MEDS: GABAPENTIN 300 MG CAPSULE PO SCH (09:46)
[2019-11-30] MEDS: DULOXETINE 30 MG CAPSULE.DR PO SCH (09:47)
[2019-11-30] MEDS: VANCOMYCIN 2,000 MG in SODIUM CHLORIDE 0.9% 500 ML IV SCH (10:20)
[2019-11-30] MEDS: NS + 20MEQ KCL 1,000 ML IV SCH (10:20)
[2019-11-30] MEDS ORDERED: SULF1TAB24 PO (10:48)
[2019-12-01] MEDS ORDERED: PANTOPRAZOLE 40MG TABLET PO SCH (06:00)
== END 2019-11-30 15:53 | disposition home or self-care (01) | DRG 347 ==
LOC: ED 12:59 → EDIP 13:25 → 4WST 17:02
PROVIDERS: ADMIT Internal Medicine; ATTEND Family Medicine
PROC: 0D758ZZ Dilation of Esophagus, Via Natural or Artificial Opening Endoscopic (ICD-10-PCS; principal; 2019-11-27)
PROC: 30233N1 Transfusion of Nonautologous Red Blood Cells into Peripheral Vein, Percutaneous Approach (ICD-10-PCS; 2019-11-27)
PROC: 30233K1 Transfusion of Nonautologous Frozen Plasma into Peripheral Vein, Percutaneous Approach (ICD-10-PCS; 2019-11-27)
PROC: 30233R1 Transfusion of Nonautologous Platelets into Peripheral Vein, Percutaneous Approach (ICD-10-PCS; 2019-11-27)
PROC: 0DJ68ZZ Inspection of Stomach, Via Natural or Artificial Opening Endoscopic (ICD-10-PCS; 2019-11-27)
PROC: 0DBL8ZZ Excision of Transverse Colon, Via Natural or Artificial Opening Endoscopic (ICD-10-PCS; 2019-11-27)
PROC: 0D588ZZ Destruction of Small Intestine, Via Natural or Artificial Opening Endoscopic (ICD-10-PCS; 2019-11-27)
PROC: 06BY0ZC Excision of Hemorrhoidal Plexus, Open Approach (ICD-10-PCS; 2019-11-29)
DX: K64.8 Other hemorrhoids (principal); K55.21 Angiodysplasia of colon with hemorrhage; K92.2 Gastrointestinal hemorrhage, unspecified; F11.20 Opioid dependence, uncomplicated; L03.116 Cellulitis of left lower limb; D62 Acute posthemorrhagic anemia; L97.529 Non-pressure chronic ulcer of other part of left foot with unspecified severity; D64.9 Anemia, unspecified; R55 Syncope and collapse; F17.210 Nicotine dependence, cigarettes, uncomplicated; R00.1 Bradycardia, unspecified; K21.9 Gastro-esophageal reflux disease without esophagitis; F32.9 Major depressive disorder, single episode, unspecified; E78.5 Hyperlipidemia, unspecified; E66.9 Obesity, unspecified; J44.9 Chronic obstructive pulmonary disease, unspecified; I50.9 Heart failure, unspecified; I11.0 Hypertensive heart disease with heart failure; G35 Multiple sclerosis; Z90.710 Acquired absence of both cervix and uterus; Z91.041 Radiographic dye allergy status; Z88.8 Allergy status to other drugs, medicaments and biological substances; Z79.899 Other long term (current) drug therapy; Z86.14 Personal history of Methicillin resistant Staphylococcus aureus infection; Z90.49 Acquired absence of other specified parts of digestive tract; Z80.0 Family history of malignant neoplasm of digestive organs; Z80.3 Family history of malignant neoplasm of breast; Z87.19 Personal history of other diseases of the digestive system; Z99.81 Dependence on supplemental oxygen; E11.621 Type 2 diabetes mellitus with foot ulcer; I27.20 Pulmonary hypertension, unspecified
CPT/HCPCS: 36415; 80048; 80053; 83036; 84439; 84443; 85014; 85018; 85025; 85610; 85651; 86140; 86850; 86900; 86923; 87070; 87077; 87147; 87186; 87205; 88304; 88305; 93005; 93308; 93321; 93325; 93922; 94640; 99291; C9290; G0378; J2250; J2405; J2704; J3010; J3370; J3480; J7613; J7626; C9113; J0330; J2270; J7040; P9016; P9017; P9035; U0001-CS

== ENCOUNTER → 2019-11-27 | Outpatient (CLI) | payer MEDICARE, MEDICAID ==
[~2019-11-27] MED LIST changes: -OXYC15TA PO; +OXYC15TA3 PO; +SULF1TAB24 PO; +TADA20TA43 PO
== END | disposition home or self-care (01) ==
LOC: WOUND 10:02
PROVIDERS: ATTEND Podiatrist Foot & Ankle Surgery
DX: L89.893 Pressure ulcer of other site, stage 3 (principal); L97.522 Non-pressure chronic ulcer of other part of left foot with fat layer exposed; L84 Corns and callosities; I11.0 Hypertensive heart disease with heart failure; I50.9 Heart failure, unspecified; I27.20 Pulmonary hypertension, unspecified; I48.91 Unspecified atrial fibrillation; E78.5 Hyperlipidemia, unspecified; E03.9 Hypothyroidism, unspecified; E04.1 Nontoxic single thyroid nodule; E66.9 Obesity, unspecified; M14.672 Charcot's joint, left ankle and foot; M86.172 Other acute osteomyelitis, left ankle and foot; G35 Multiple sclerosis; G47.33 Obstructive sleep apnea (adult) (pediatric); G62.9 Polyneuropathy, unspecified; J44.9 Chronic obstructive pulmonary disease, unspecified; F17.210 Nicotine dependence, cigarettes, uncomplicated; Z90.49 Acquired absence of other specified parts of digestive tract; Z90.710 Acquired absence of both cervix and uterus
CPT/HCPCS: 11042; 87070; 87075; 87077; 87186; 87205

== ENCOUNTER → 2019-12-04 | Outpatient (CLI) | payer MEDICARE, MEDICAID ==
[~2019-12-04] MED LIST changes: +SULF1TAB24 PO; +TADA20TA43 PO
== END | disposition home or self-care (01) ==
LOC: WOUND 08:37
PROVIDERS: ATTEND Podiatrist Foot & Ankle Surgery
DX: E11.621 Type 2 diabetes mellitus with foot ulcer (principal); L89.893 Pressure ulcer of other site, stage 3; L97.522 Non-pressure chronic ulcer of other part of left foot with fat layer exposed; L84 Corns and callosities; I11.0 Hypertensive heart disease with heart failure; I50.9 Heart failure, unspecified; I27.20 Pulmonary hypertension, unspecified; I48.91 Unspecified atrial fibrillation; E78.5 Hyperlipidemia, unspecified; E03.9 Hypothyroidism, unspecified; E04.1 Nontoxic single thyroid nodule; E11.610 Type 2 diabetes mellitus with diabetic neuropathic arthropathy; E11.69 Type 2 diabetes mellitus with other specified complication; M86.172 Other acute osteomyelitis, left ankle and foot; E66.9 Obesity, unspecified; G35 Multiple sclerosis; G47.33 Obstructive sleep apnea (adult) (pediatric); E11.42 Type 2 diabetes mellitus with diabetic polyneuropathy; J44.9 Chronic obstructive pulmonary disease, unspecified; F32.9 Major depressive disorder, single episode, unspecified; K21.9 Gastro-esophageal reflux disease without esophagitis; M85.88 Other specified disorders of bone density and structure, other site; F11.20 Opioid dependence, uncomplicated; F17.210 Nicotine dependence, cigarettes, uncomplicated; Z90.49 Acquired absence of other specified parts of digestive tract; Z90.710 Acquired absence of both cervix and uterus; Z68.34 Body mass index [BMI] 34.0-34.9, adult; Z86.14 Personal history of Methicillin resistant Staphylococcus aureus infection; Z91.09 Other allergy status, other than to drugs and biological substances; Z79.899 Other long term (current) drug therapy
CPT/HCPCS: 97597

== ENCOUNTER → 2019-12-11 | Outpatient (CLI) | payer MEDICARE, MEDICAID | END | disposition home or self-care (01) | LOC: WOUND 09:44 | PROVIDERS: ATTEND Podiatrist Foot & Ankle Surgery | DX: E11.621 Type 2 diabetes mellitus with foot ulcer (principal); L89.893 Pressure ulcer of other site, stage 3; L97.522 Non-pressure chronic ulcer of other part of left foot with fat layer exposed; L84 Corns and callosities; I11.0 Hypertensive heart disease with heart failure; I50.9 Heart failure, unspecified; I27.20 Pulmonary hypertension, unspecified; I48.91 Unspecified atrial fibrillation; E78.5 Hyperlipidemia, unspecified; E03.9 Hypothyroidism, unspecified; E04.1 Nontoxic single thyroid nodule; E11.610 Type 2 diabetes mellitus with diabetic neuropathic arthropathy; E11.69 Type 2 diabetes mellitus with other specified complication; M86.171 Other acute osteomyelitis, right ankle and foot; E66.9 Obesity, unspecified; G35 Multiple sclerosis; G47.33 Obstructive sleep apnea (adult) (pediatric); E11.42 Type 2 diabetes mellitus with diabetic polyneuropathy; J44.9 Chronic obstructive pulmonary disease, unspecified; F32.9 Major depressive disorder, single episode, unspecified; K21.9 Gastro-esophageal reflux disease without esophagitis; M85.88 Other specified disorders of bone density and structure, other site; F11.20 Opioid dependence, uncomplicated; F17.210 Nicotine dependence, cigarettes, uncomplicated; Z90.49 Acquired absence of other specified parts of digestive tract; Z90.710 Acquired absence of both cervix and uterus; Z68.34 Body mass index [BMI] 34.0-34.9, adult; Z86.14 Personal history of Methicillin resistant Staphylococcus aureus infection; Z91.09 Other allergy status, other than to drugs and biological substances; Z79.899 Other long term (current) drug therapy | CPT/HCPCS: 11042 ==

== ENCOUNTER → 2019-12-25 | Outpatient (CLI) | payer MEDICARE, MEDICAID | END | disposition home or self-care (01) | LOC: WOUND 09:50 | PROVIDERS: ATTEND Podiatrist Foot & Ankle Surgery | DX: E11.621 Type 2 diabetes mellitus with foot ulcer (principal); L89.893 Pressure ulcer of other site, stage 3; L97.522 Non-pressure chronic ulcer of other part of left foot with fat layer exposed; L84 Corns and callosities; I11.0 Hypertensive heart disease with heart failure; I50.9 Heart failure, unspecified; I27.20 Pulmonary hypertension, unspecified; I48.91 Unspecified atrial fibrillation; E78.5 Hyperlipidemia, unspecified; E03.9 Hypothyroidism, unspecified; E04.1 Nontoxic single thyroid nodule; E11.610 Type 2 diabetes mellitus with diabetic neuropathic arthropathy; E11.69 Type 2 diabetes mellitus with other specified complication; M86.171 Other acute osteomyelitis, right ankle and foot; E66.9 Obesity, unspecified; G35 Multiple sclerosis; G47.33 Obstructive sleep apnea (adult) (pediatric); E11.42 Type 2 diabetes mellitus with diabetic polyneuropathy; J44.9 Chronic obstructive pulmonary disease, unspecified; F32.9 Major depressive disorder, single episode, unspecified; K21.9 Gastro-esophageal reflux disease without esophagitis; M85.88 Other specified disorders of bone density and structure, other site; F11.20 Opioid dependence, uncomplicated; F17.210 Nicotine dependence, cigarettes, uncomplicated; Z90.49 Acquired absence of other specified parts of digestive tract; Z90.710 Acquired absence of both cervix and uterus; Z68.34 Body mass index [BMI] 34.0-34.9, adult; Z86.14 Personal history of Methicillin resistant Staphylococcus aureus infection; Z91.09 Other allergy status, other than to drugs and biological substances; Z79.899 Other long term (current) drug therapy | CPT/HCPCS: 11042 ==

== ENCOUNTER → 2020-01-01 | Outpatient (CLI) | payer MEDICARE, MEDICAID | END | disposition home or self-care (01) | LOC: WOUND 08:53 | PROVIDERS: ATTEND Podiatrist Foot & Ankle Surgery | DX: E11.621 Type 2 diabetes mellitus with foot ulcer (principal); L89.893 Pressure ulcer of other site, stage 3; L97.522 Non-pressure chronic ulcer of other part of left foot with fat layer exposed; L84 Corns and callosities; I11.0 Hypertensive heart disease with heart failure; I50.9 Heart failure, unspecified; I27.20 Pulmonary hypertension, unspecified; I48.91 Unspecified atrial fibrillation; E78.5 Hyperlipidemia, unspecified; E03.9 Hypothyroidism, unspecified; E04.1 Nontoxic single thyroid nodule; E11.610 Type 2 diabetes mellitus with diabetic neuropathic arthropathy; E11.69 Type 2 diabetes mellitus with other specified complication; M86.171 Other acute osteomyelitis, right ankle and foot; E66.9 Obesity, unspecified; G35 Multiple sclerosis; G47.33 Obstructive sleep apnea (adult) (pediatric); E11.42 Type 2 diabetes mellitus with diabetic polyneuropathy; J44.9 Chronic obstructive pulmonary disease, unspecified; F32.9 Major depressive disorder, single episode, unspecified; K21.9 Gastro-esophageal reflux disease without esophagitis; M85.88 Other specified disorders of bone density and structure, other site; E78.00 Pure hypercholesterolemia, unspecified; F11.20 Opioid dependence, uncomplicated; F17.210 Nicotine dependence, cigarettes, uncomplicated; Z90.49 Acquired absence of other specified parts of digestive tract; Z90.710 Acquired absence of both cervix and uterus; Z68.34 Body mass index [BMI] 34.0-34.9, adult; Z86.14 Personal history of Methicillin resistant Staphylococcus aureus infection; Z79.899 Other long term (current) drug therapy; Z88.8 Allergy status to other drugs, medicaments and biological substances | CPT/HCPCS: 11042 ==

== ENCOUNTER → 2020-01-15 | Outpatient (CLI) | payer MEDICARE, MEDICAID | END | disposition home or self-care (01) | LOC: WOUND 09:54 | PROVIDERS: ATTEND Podiatrist Foot & Ankle Surgery | DX: E11.621 Type 2 diabetes mellitus with foot ulcer (principal); L89.893 Pressure ulcer of other site, stage 3; L97.522 Non-pressure chronic ulcer of other part of left foot with fat layer exposed; L84 Corns and callosities; I11.0 Hypertensive heart disease with heart failure; I50.9 Heart failure, unspecified; I27.20 Pulmonary hypertension, unspecified; I48.91 Unspecified atrial fibrillation; E78.5 Hyperlipidemia, unspecified; E03.9 Hypothyroidism, unspecified; E04.1 Nontoxic single thyroid nodule; E11.610 Type 2 diabetes mellitus with diabetic neuropathic arthropathy; E11.69 Type 2 diabetes mellitus with other specified complication; M86.171 Other acute osteomyelitis, right ankle and foot; E66.9 Obesity, unspecified; G35 Multiple sclerosis; G47.33 Obstructive sleep apnea (adult) (pediatric); E11.42 Type 2 diabetes mellitus with diabetic polyneuropathy; J44.9 Chronic obstructive pulmonary disease, unspecified; F32.9 Major depressive disorder, single episode, unspecified; K21.9 Gastro-esophageal reflux disease without esophagitis; M85.88 Other specified disorders of bone density and structure, other site; E78.00 Pure hypercholesterolemia, unspecified; F11.20 Opioid dependence, uncomplicated; F17.210 Nicotine dependence, cigarettes, uncomplicated; Z90.49 Acquired absence of other specified parts of digestive tract; Z88.8 Allergy status to other drugs, medicaments and biological substances; Z90.710 Acquired absence of both cervix and uterus; Z68.34 Body mass index [BMI] 34.0-34.9, adult; Z86.14 Personal history of Methicillin resistant Staphylococcus aureus infection; Z79.899 Other long term (current) drug therapy | CPT/HCPCS: 11042 ==

== ENCOUNTER → 2020-01-22 | Outpatient (CLI) | payer MEDICARE, MEDICAID | END | disposition home or self-care (01) | LOC: WOUND 10:44 | PROVIDERS: ATTEND Podiatrist Foot & Ankle Surgery | DX: E11.621 Type 2 diabetes mellitus with foot ulcer (principal); L89.893 Pressure ulcer of other site, stage 3; L97.522 Non-pressure chronic ulcer of other part of left foot with fat layer exposed; L84 Corns and callosities; I11.0 Hypertensive heart disease with heart failure; I50.9 Heart failure, unspecified; I27.20 Pulmonary hypertension, unspecified; I48.91 Unspecified atrial fibrillation; E78.5 Hyperlipidemia, unspecified; E03.9 Hypothyroidism, unspecified; E04.1 Nontoxic single thyroid nodule; E11.610 Type 2 diabetes mellitus with diabetic neuropathic arthropathy; E11.69 Type 2 diabetes mellitus with other specified complication; M86.171 Other acute osteomyelitis, right ankle and foot; E66.9 Obesity, unspecified; G35 Multiple sclerosis; G47.33 Obstructive sleep apnea (adult) (pediatric); E11.42 Type 2 diabetes mellitus with diabetic polyneuropathy; J44.9 Chronic obstructive pulmonary disease, unspecified; F32.9 Major depressive disorder, single episode, unspecified; K21.9 Gastro-esophageal reflux disease without esophagitis; M85.88 Other specified disorders of bone density and structure, other site; E78.00 Pure hypercholesterolemia, unspecified; F11.20 Opioid dependence, uncomplicated; F17.210 Nicotine dependence, cigarettes, uncomplicated; Z90.49 Acquired absence of other specified parts of digestive tract; Z88.8 Allergy status to other drugs, medicaments and biological substances; Z90.710 Acquired absence of both cervix and uterus; Z68.34 Body mass index [BMI] 34.0-34.9, adult; Z86.14 Personal history of Methicillin resistant Staphylococcus aureus infection; Z79.899 Other long term (current) drug therapy | CPT/HCPCS: 97597 ==

== ENCOUNTER → 2020-01-29 | Outpatient (CLI) | payer MEDICARE, MEDICAID | END | disposition home or self-care (01) | LOC: WOUND 08:34 | PROVIDERS: ATTEND Podiatrist Foot & Ankle Surgery | DX: E11.621 Type 2 diabetes mellitus with foot ulcer (principal); L89.893 Pressure ulcer of other site, stage 3; L97.522 Non-pressure chronic ulcer of other part of left foot with fat layer exposed; L84 Corns and callosities; I11.0 Hypertensive heart disease with heart failure; I50.9 Heart failure, unspecified; I27.20 Pulmonary hypertension, unspecified; I48.91 Unspecified atrial fibrillation; E78.5 Hyperlipidemia, unspecified; E03.9 Hypothyroidism, unspecified; E04.1 Nontoxic single thyroid nodule; E11.610 Type 2 diabetes mellitus with diabetic neuropathic arthropathy; E11.69 Type 2 diabetes mellitus with other specified complication; M86.171 Other acute osteomyelitis, right ankle and foot; E66.9 Obesity, unspecified; G35 Multiple sclerosis; G47.33 Obstructive sleep apnea (adult) (pediatric); E11.42 Type 2 diabetes mellitus with diabetic polyneuropathy; J44.9 Chronic obstructive pulmonary disease, unspecified; F32.9 Major depressive disorder, single episode, unspecified; K21.9 Gastro-esophageal reflux disease without esophagitis; M85.88 Other specified disorders of bone density and structure, other site; E78.00 Pure hypercholesterolemia, unspecified; F11.20 Opioid dependence, uncomplicated; F17.210 Nicotine dependence, cigarettes, uncomplicated; Z90.49 Acquired absence of other specified parts of digestive tract; Z88.8 Allergy status to other drugs, medicaments and biological substances; Z90.710 Acquired absence of both cervix and uterus; Z68.34 Body mass index [BMI] 34.0-34.9, adult; Z86.14 Personal history of Methicillin resistant Staphylococcus aureus infection; Z79.899 Other long term (current) drug therapy | CPT/HCPCS: 11042 ==

== ENCOUNTER 2020-02-05 09:10 | Outpatient (CLI) | payer MEDICARE, MEDICAID | END 2020-02-05 23:59 | disposition home or self-care (01) | LOC: WOUND 09:10 | PROVIDERS: ATTEND Podiatrist Foot & Ankle Surgery | DX: E11.621 Type 2 diabetes mellitus with foot ulcer (principal); L89.893 Pressure ulcer of other site, stage 3; L97.522 Non-pressure chronic ulcer of other part of left foot with fat layer exposed; L84 Corns and callosities; I11.0 Hypertensive heart disease with heart failure; I50.9 Heart failure, unspecified; I27.20 Pulmonary hypertension, unspecified; I48.91 Unspecified atrial fibrillation; E78.5 Hyperlipidemia, unspecified; E03.9 Hypothyroidism, unspecified; E04.1 Nontoxic single thyroid nodule; E11.610 Type 2 diabetes mellitus with diabetic neuropathic arthropathy; E11.69 Type 2 diabetes mellitus with other specified complication; M86.171 Other acute osteomyelitis, right ankle and foot; E66.9 Obesity, unspecified; G35 Multiple sclerosis; G47.33 Obstructive sleep apnea (adult) (pediatric); E11.42 Type 2 diabetes mellitus with diabetic polyneuropathy; J44.9 Chronic obstructive pulmonary disease, unspecified; F32.9 Major depressive disorder, single episode, unspecified; K21.9 Gastro-esophageal reflux disease without esophagitis; M85.88 Other specified disorders of bone density and structure, other site; E78.00 Pure hypercholesterolemia, unspecified; F11.20 Opioid dependence, uncomplicated; F17.210 Nicotine dependence, cigarettes, uncomplicated; Z90.49 Acquired absence of other specified parts of digestive tract; Z88.8 Allergy status to other drugs, medicaments and biological substances; Z90.710 Acquired absence of both cervix and uterus; Z68.34 Body mass index [BMI] 34.0-34.9, adult; Z86.14 Personal history of Methicillin resistant Staphylococcus aureus infection; Z79.899 Other long term (current) drug therapy | CPT/HCPCS: 11042 ==

== ENCOUNTER → 2020-03-04 | Outpatient (CLI) | payer MEDICARE, MEDICAID | END | disposition home or self-care (01) | LOC: WOUND 14:46 | PROVIDERS: ATTEND Podiatrist Foot & Ankle Surgery | DX: E11.621 Type 2 diabetes mellitus with foot ulcer (principal); L89.893 Pressure ulcer of other site, stage 3; L97.522 Non-pressure chronic ulcer of other part of left foot with fat layer exposed; E11.42 Type 2 diabetes mellitus with diabetic polyneuropathy; E11.69 Type 2 diabetes mellitus with other specified complication; M86.172 Other acute osteomyelitis, left ankle and foot; L03.116 Cellulitis of left lower limb; E11.610 Type 2 diabetes mellitus with diabetic neuropathic arthropathy; G35 Multiple sclerosis; E78.5 Hyperlipidemia, unspecified; I11.0 Hypertensive heart disease with heart failure; I50.9 Heart failure, unspecified; E03.9 Hypothyroidism, unspecified; J44.9 Chronic obstructive pulmonary disease, unspecified; K21.9 Gastro-esophageal reflux disease without esophagitis; M32.9 Systemic lupus erythematosus, unspecified; E78.00 Pure hypercholesterolemia, unspecified; I48.91 Unspecified atrial fibrillation; E66.9 Obesity, unspecified; G47.33 Obstructive sleep apnea (adult) (pediatric); F17.210 Nicotine dependence, cigarettes, uncomplicated; Z86.14 Personal history of Methicillin resistant Staphylococcus aureus infection; Z68.34 Body mass index [BMI] 34.0-34.9, adult; Z79.01 Long term (current) use of anticoagulants; Z90.710 Acquired absence of both cervix and uterus; Z90.49 Acquired absence of other specified parts of digestive tract | CPT/HCPCS: 11042 ==

== ENCOUNTER → 2020-03-25 | Outpatient (CLI) | payer MEDICARE, MEDICAID | END | disposition home or self-care (01) | LOC: WOUND 08:24 | PROVIDERS: ATTEND Podiatrist Foot & Ankle Surgery | DX: E11.621 Type 2 diabetes mellitus with foot ulcer (principal); L89.890 Pressure ulcer of other site, unstageable; L97.522 Non-pressure chronic ulcer of other part of left foot with fat layer exposed; L03.116 Cellulitis of left lower limb; E11.40 Type 2 diabetes mellitus with diabetic neuropathy, unspecified; E11.610 Type 2 diabetes mellitus with diabetic neuropathic arthropathy; E11.69 Type 2 diabetes mellitus with other specified complication; M86.172 Other acute osteomyelitis, left ankle and foot; M86.171 Other acute osteomyelitis, right ankle and foot; L84 Corns and callosities; E78.5 Hyperlipidemia, unspecified; E03.9 Hypothyroidism, unspecified; J44.9 Chronic obstructive pulmonary disease, unspecified; G35 Multiple sclerosis; I48.92 Unspecified atrial flutter; I11.0 Hypertensive heart disease with heart failure; I50.9 Heart failure, unspecified; K21.9 Gastro-esophageal reflux disease without esophagitis; E78.00 Pure hypercholesterolemia, unspecified; I48.91 Unspecified atrial fibrillation; M32.9 Systemic lupus erythematosus, unspecified; E66.9 Obesity, unspecified; G47.33 Obstructive sleep apnea (adult) (pediatric); F17.210 Nicotine dependence, cigarettes, uncomplicated; Z68.34 Body mass index [BMI] 34.0-34.9, adult; Z86.14 Personal history of Methicillin resistant Staphylococcus aureus infection; Z79.01 Long term (current) use of anticoagulants; Z90.710 Acquired absence of both cervix and uterus; Z90.49 Acquired absence of other specified parts of digestive tract | CPT/HCPCS: 11042 ==

== ENCOUNTER → 2020-04-01 | Outpatient (CLI) | payer MEDICARE, MEDICAID | END | disposition home or self-care (01) | LOC: WOUND 09:45 | PROVIDERS: ATTEND Podiatrist Foot & Ankle Surgery | DX: E11.621 Type 2 diabetes mellitus with foot ulcer (principal); L89.899 Pressure ulcer of other site, unspecified stage; L97.522 Non-pressure chronic ulcer of other part of left foot with fat layer exposed; L03.116 Cellulitis of left lower limb; E11.40 Type 2 diabetes mellitus with diabetic neuropathy, unspecified; E11.69 Type 2 diabetes mellitus with other specified complication; M86.172 Other acute osteomyelitis, left ankle and foot; M86.171 Other acute osteomyelitis, right ankle and foot; E11.610 Type 2 diabetes mellitus with diabetic neuropathic arthropathy; L84 Corns and callosities; E78.5 Hyperlipidemia, unspecified; E03.9 Hypothyroidism, unspecified; J44.9 Chronic obstructive pulmonary disease, unspecified; G35 Multiple sclerosis; I11.0 Hypertensive heart disease with heart failure; I50.9 Heart failure, unspecified; K21.9 Gastro-esophageal reflux disease without esophagitis; E78.00 Pure hypercholesterolemia, unspecified; M32.9 Systemic lupus erythematosus, unspecified; I48.91 Unspecified atrial fibrillation; G47.33 Obstructive sleep apnea (adult) (pediatric); E66.9 Obesity, unspecified; F32.9 Major depressive disorder, single episode, unspecified; F17.210 Nicotine dependence, cigarettes, uncomplicated; Z86.14 Personal history of Methicillin resistant Staphylococcus aureus infection; Z68.34 Body mass index [BMI] 34.0-34.9, adult; Z79.01 Long term (current) use of anticoagulants; Z90.710 Acquired absence of both cervix and uterus; Z90.49 Acquired absence of other specified parts of digestive tract | CPT/HCPCS: 11042 ==

== ENCOUNTER → 2020-04-08 | Outpatient (CLI) | payer MEDICARE, MEDICAID | END | disposition home or self-care (01) | LOC: WOUND 10:09 | PROVIDERS: ATTEND Podiatrist Foot & Ankle Surgery | DX: E11.621 Type 2 diabetes mellitus with foot ulcer (principal); L89.899 Pressure ulcer of other site, unspecified stage; L97.522 Non-pressure chronic ulcer of other part of left foot with fat layer exposed; L03.116 Cellulitis of left lower limb; E11.40 Type 2 diabetes mellitus with diabetic neuropathy, unspecified; E11.69 Type 2 diabetes mellitus with other specified complication; M86.172 Other acute osteomyelitis, left ankle and foot; M86.171 Other acute osteomyelitis, right ankle and foot; E11.610 Type 2 diabetes mellitus with diabetic neuropathic arthropathy; L84 Corns and callosities; E78.5 Hyperlipidemia, unspecified; E03.9 Hypothyroidism, unspecified; J44.9 Chronic obstructive pulmonary disease, unspecified; G35 Multiple sclerosis; I11.0 Hypertensive heart disease with heart failure; I50.9 Heart failure, unspecified; K21.9 Gastro-esophageal reflux disease without esophagitis; E78.00 Pure hypercholesterolemia, unspecified; M32.9 Systemic lupus erythematosus, unspecified; I48.91 Unspecified atrial fibrillation; G47.33 Obstructive sleep apnea (adult) (pediatric); E66.9 Obesity, unspecified; F32.9 Major depressive disorder, single episode, unspecified; F17.210 Nicotine dependence, cigarettes, uncomplicated; Z86.14 Personal history of Methicillin resistant Staphylococcus aureus infection; Z68.34 Body mass index [BMI] 34.0-34.9, adult; Z79.01 Long term (current) use of anticoagulants; Z90.710 Acquired absence of both cervix and uterus; Z90.49 Acquired absence of other specified parts of digestive tract | CPT/HCPCS: 11042 ==